=== PATIENT | male | born 1970 | race Caucasian/White ===

== ENCOUNTER 2017-08-03 07:37 | Emergency (ER) | payer BC ==
[2017-08-03 07:54] VITALS: BP 142/97
--- NOTE | 2017-08-03 08:59 | UC ---
Skin Complaint HPI - HPI Summary HPI Summary: ABOUT 2 WEEKS OF VERY ITCHY RASH ON TRUNK AND INNER THIGHS. DENIES ANY NEW LOTIONS, DETERGENTS, SOAPS, BODY SPRAYS OR OTHER NEW EXPOSURES. NO NEW MEDS. DOES A LOT OF SWIMMING IN THE FU. - History of Current Complaint Chief Complaint: [facility] Time Seen by Provider: 08/03/17 08:20 Stated Complaint: RASH Hx Obtained From: Patient Onset/Duration: Gradual Onset, Lasting Weeks, Still Present Timing: Constant Onset Severity: Moderate Current Severity: Moderate Pain Intensity: 0 Pain Scale Used: 0-10 Numeric Character: Pruritus, Redness Aggravating Factor(s): Touch Alleviating Factor(s): Nothing Associated Signs & Symptoms: Positive: Rash. Negative: Nausea, Diaphoresis, Difficulty Breathing, Fever, Chills, Cough, Wheezing, Chest Pain, Throat Tightening, Tenderness, Red Streaks - Allergy/Home Medications Allergies/Adverse Reactions: Allergies Allergy/AdvReac Type Severity Reaction Status Date / Time Kiwi Extract Allergy Severe THROAT Verified 08/03/17 07:50 SWELLING Home Medications: Home Medications Aspirin [Aspirin 81 MG TAB] 1 tab PO DAILY 08/03/17 [History Confirmed 08/03/17] Onrscae-Embffwbud-Fyut [Calcium & Magnesium + Zin 334-134-5 mg] 1 tab PO DAILY 08/03/17 [History Confirmed 08/03/17] Cinnamon 1 tab PO DAILY 08/03/17 [History Confirmed 08/03/17] Review of Systems Constitutional: Negative Skin: Rash Respiratory: Negative Cardiovascular: Negative Gastrointestinal: Negative All Other Systems Reviewed And Are Negative: Yes PMH/Surg Hx/FS Hx/Imm Hx Cardiovascular History: Hypertension - Surgical History Surgical History: Yes Surgery Procedure, Year, and Place: soft palate surgery 1998 for sleep apnea - Family History Known Family History: Negative: Hypertension, Diabetes - Social History Alcohol Use: Occasionally Alcohol Amount: 2/DAY Substance Use Type: None Smoking Status (MU): Never Smoked Tobacco - Immunization History Most Recent Tetanus Shot: UNKNOWN Physical Exam Triage Information Reviewed: Yes Appearance: Well-Appearing, No Pain Distress, Well-Nourished Vital Signs: Initial Vital Signs Temp 97.7 F 08/03/17 07:51 Pulse 83 08/03/17 07:51 Resp 18 08/03/17 07:51 BP 142/97 08/03/17 07:51 Pulse Ox 97 08/03/17 07:51 Vital Signs Reviewed: Yes Eyes: Positive: Conjunctiva Clear ENT: Positive: Hearing grossly normal Neck: Positive: Supple Respiratory: Positive: No respiratory distress, No accessory muscle use Cardiovascular: Positive: Pulses Normal Abdomen Description: Positive: Soft Musculoskeletal: Positive: No Edema Neurological: Positive: Alert Psychological: Positive: Age Appropriate Behavior Skin: Positive: rashes - DIFFUSE ERYTHEMATOUS, RAISED RASH OVER TRUNK AND MINIMALLY ON INNER THIGHS WITH MILD EXCORIATION Course/Dx - Diagnoses Provider Diagnoses: ATOPIC DERMATITIS Discharge - Discharge Plan Condition: Stable Disposition: HOME Prescriptions: Triamcinolone 0.1% CREAM(NF) [Kenalog Cream 0.1%(NF)] 1 applic TOPICAL TID PRN # 1 tube PRN Reason: Itching predniSONE TAB* [Deltasone TAB*] 50 mg PO DAILY #7 tab Patient Education Materials: Contact Dermatitis (ED) Referrals: Candace Steen MD [Medical Doctor] - (KEEP YOUR APPT 08/22/17) Marylou Tejada MD [Primary Care Provider] - If Needed Additional Instructions: UNCLEAR WHAT EXACTLY IS CAUSING YOUR RASH BUT IT APPEARS TO BE AN ALLERGIC DERMATITIS. USE DAILY MOISTURIZING LOTION AVOID HEAT AND HOT WATER TAKE OTC ANTIHISTAMINE DAILY (CLARITIN (LORATADINE), ZYRTEC (CETIRIZINE) OR BIA (FEXOFENADINE) IN THE MORNING, 25-50MG BENADRYL AT NIGHT) DO NOT SCRATCH KEEP COOL, CLEAN AND DRY SEE PCP OR DERMATOLOGY IF NOT IMPROVING IF YOUR SYMPTOMS BECOME RECURRENT CONSIDER EVAL BY AN STICKER HAND. [facility] Address: [address], [place] [address] [facility] [address] [place], [place] [address]sh[address], [address] [place], [place] [address]
== END 2017-08-03 08:56 | disposition home or self-care (01) ==
LOC: UCEAST 07:37
DX: L20.9 Atopic dermatitis, unspecified (principal); Z79.82 Long term (current) use of aspirin; Z91.018 Allergy to other foods
CPT/HCPCS: 99212; G0463

== ENCOUNTER 2018-04-29 14:05 | Emergency (ER) | payer BC ==
[2018-04-29 14:17] VITALS: BP 145/105
[2018-04-29] MEDS ORDERED: predniSONE TAB* 20 MG PO ONE (14:46)
--- NOTE | 2018-04-29 15:03 | UC ---
Cordelia Ng Rebecca, scribed for Aydee Ortiz MD on 04/29/18 at 1430 . Skin Complaint HPI - HPI Summary HPI Summary: Pt is a 47 y/o M who presents to [facility] c/o bilateral UE, bilateral ear and facial rash for about 2 weeks. Rash is characterized as "hot" and pruritic and he suspects it is due to sun exposure or from poison kandis. Rash has been intermittent since onset, improving occasionally, then after he itches it, will return. Reports that the rash seems to return with sun exposure and with certain foods, unchanged by wine or alcohol. Treats with isopropyl alcohol, which slightly improves sx. Has been outside a lot this past week and on (2 days ago) he wore a long sleeve shirt and sx seemed to improve. Notes a pimple on his nose which he has been treating with Neosporin. Denies wheezing, SOB. Prior similar episode last summer for which he saw a logging superintendent, who he last saw in the fall. He has has poison kandis in the past and he thinks this may be similar to those episodes. Has been on all his home medications for "a while" without any changes to detergents or shaving creams. 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 - History of Current Complaint Chief Complaint: [facility] Time Seen by Provider: 04/29/18 14:14 Stated Complaint: RASH Hx Obtained From: Patient Onset/Duration: Lasting Weeks - 2 weeks, Still Present Timing: Intermittent Episodes Lasting: Current Severity: Mild Pain Intensity: 3 Pain Scale Used: 0-10 Numeric Location: Other - Bilateral UE, facial and bialteral ear Character: Pruritus, Pain, Redness Aggravating Factor(s): Other - Sun, itching Alleviating Factor(s): Other - Isopropyl Associated Signs & Symptoms: Positive: Negative. Negative: Wheezing - Allergy/Home Medications Allergies/Adverse Reactions: Allergies Allergy/AdvReac Type Severity Reaction Status Date / Time kiwi Allergy Swelling Verified 04/29/18 14:18 Of Face,Lips,& Throat Review of Systems Constitutional: Negative Skin: Rash - Bilateral UE, bialteral ear and facial pruritic rash, Other - Pimple on nose Eyes: Negative ENT: Negative Respiratory: Negative Cardiovascular: Negative Gastrointestinal: Negative Genitourinary: Negative Motor: Negative Neurovascular: Negative Musculoskeletal: Negative Neurological: Negative Psychological: Negative All Other Systems Reviewed And Are Negative: Yes - Comments Additional Review of Systems Comments: NEGATIVE: Wheezing, SOB PMH/Surg Hx/FS Hx/Imm Hx Endocrine History: Dyslipidemia - HLD Cardiovascular History: Hypertension Respiratory History: Other Other Respiratory History: Sleep apnea - Surgical History Surgical History: Yes Surgery Procedure, Year, and Place: soft palate surgery 1998 for sleep apnea - Family History Known Family History: Negative: Hypertension, Diabetes - Social History Occupation: Employed Full-time - Splicer with [employer] Alcohol Use: Occasionally Alcohol Amount: 2/DAY Substance Use Type: None Smoking Status (MU): Never Smoked Tobacco - Immunization History Most Recent Tetanus Shot: UNKNOWN Physical Exam Triage Information Reviewed: Yes Appearance: Well-Appearing, Obese Vital Signs: Initial Vital Signs Temp 98.0 F 04/29/18 14:13 Pulse 71 04/29/18 14:13 Resp 18 04/29/18 14:13 BP 145/105 04/29/18 14:13 Pulse Ox 98 04/29/18 14:13 Vital Signs Reviewed: Yes ENT Exam: Normal ENT: Positive: Normal ENT inspection Neck exam: Normal Respiratory Exam: Normal Cardiovascular Exam: Normal Cardiovascular: Positive: RRR Skin Exam: Other - superficial ulcer with crusting on bridge of nose Skin: Positive: rashes - Macular papular lesions on the trunk and arms, face and neck, following the track of excoriation ravi and in clusters. Some of the lesions are crusted, and there are papular lesions along the brannon area. Course/Dx - Course Course Of Treatment: Patient to start medication as prescribed, start prednisone tablets in morning along with zantac and clobetasol ointment. F/u with PCP and dermatology in 2 weeks for lesion on bridge of nose. - Diagnoses Provider Diagnoses: poison kandis. HTN Discharge - Sign-Out/Discharge Documenting (check all that apply): Discharge/Admit/Transfer - Discharge - Discharge Plan Condition: Stable Disposition: HOME Prescriptions: Clobetasol 0.05% OINT* 1 applic TOPICAL BID 7 Days #1 tube predniSONE TAB* [Deltasone 20 MG TAB*] 60 mg PO DAILY 5 Days #15 tab Ranitidine TAB (NF) [Zantac TAB (NF)] 300 mg PO BEDTIME 30 Days #30 tab Patient Education Materials: Clobetasol Propionate (On the skin), Ranitidine ( By mouth), Prednisone (By mouth), Poison Kandis (ED) Referrals: Marylou Tejada MD [Primary Care Provider] - Additional Instructions: Use over the counter 1% hydrocortisone cream on your face. Wear long-sleeve shirts and a hat when working outside. Will give the first dose of Prednisone here at Urgent Care. - Billing Disposition and Condition Condition: STABLE Disposition: Home The documentation as recorded by the Cordelia velez Rebecca accurately reflects the service I personally performed and the decisions made by me, Aydee Ortiz MD.
== END 2018-04-29 15:05 | disposition home or self-care (01) ==
LOC: UCEAST 14:05
DX: L23.7 Allergic contact dermatitis due to plants, except food (principal); I10 Essential (primary) hypertension; E78.5 Hyperlipidemia, unspecified; G47.30 Sleep apnea, unspecified; Z91.018 Allergy to other foods
CPT/HCPCS: 99212; G0463; J7512

== ENCOUNTER 2018-07-05 09:19 | Emergency (ER) | payer BC, OTHER ==
[2018-07-05 09:50] VITALS: BP 161/102
--- NOTE | 2018-07-05 10:00 | UC ---
Hand/Wrist HPI - HPI Summary HPI Summary: A 48 y/o M presents to [facility] with pain to L hand ring finger onset approx. 1400 yesterday while at work. The pain radiates from his finger to his elbow. He states his finger got caught in a car door. When it happened he could feel something being pulled out coming from his elbow. Denies pain to other fingers on L hand; pain to L wrist. - History Of Current Complaint Chief Complaint: [facility] Stated Complaint: FINGER INJURY Time Seen by Provider: 07/05/18 09:54 Hx Obtained From: Patient Onset/Duration: Sudden Onset, Lasting Days - yesterday, Still Present Severity Initially: Moderate Severity Currently: Moderate Pain Intensity: 7 Pain Scale Used: 0-10 Numeric Associated Signs And Symptoms: Positive: Other - neg: pain to other fingers on L hand, pain to L wrist Related History: Occupational Injury - Allergies/Home Medications Allergies/Adverse Reactions: Allergies Allergy/AdvReac Type Severity Reaction Status Date / Time kiwi Allergy Swelling Verified 04/29/18 14:18 Of Face,Lips,& Throat PMH/Surg Hx/FS Hx/Imm Hx Previously Healthy: No Other Endocrine History: neg DM Cardiovascular History: Hypertension Other Respiratory History: neg COPD - Surgical History Surgical History: Yes Surgery Procedure, Year, and Place: soft palate surgery 1998 for sleep apnea - Family History Known Family History: Negative: Hypertension, Diabetes - Social History Occupation: Employed Full-time Lives: With Family Alcohol Use: Occasionally Alcohol Amount: 2/DAY Substance Use Type: None Smoking Status (MU): Never Smoked Tobacco - Immunization History Most Recent Tetanus Shot: UNKNOWN Review of Systems Constitutional: Other - neg: fever Musculoskeletal: Other: - pos: pain at L ring finger radiating to elbow. neg: pain to other fingers of L hand, pain to L wrist All Other Systems Reviewed And Are Negative: Yes Physical Exam - Summary Physical Exam Summary: General: well-appearing, no pain distress Skin: warm, color reflects adequate perfusion, dry Head: normal Eyes: EOMI, WICOH ENT: normal Neck: supple, nontender Respiratory: CTA, breath sounds present Cardiovascular: RRR Abdomen: soft, nontender Bowel: present Musculoskeletal: L ring finger is tender to palpation on the Thenar aspect, it shows FROM and nml capillary refill, nml sensation deficit. There is pain with flexion of L ring finger and the pain radiates to L elbow. Neurological: sensory/motor intact, A&O x3 Psychological: affect/mood appropriate Triage Information Reviewed: Yes Vital Signs: Initial Vital Signs Temp 98 F 07/05/18 09:46 Pulse 75 07/05/18 09:46 Resp 15 07/05/18 09:46 BP 161/102 07/05/18 09:46 Pulse Ox 100 07/05/18 09:46 Vital Signs Reviewed: Yes Diagnostics - Laboratory Diagnostic Studies Completed/Ordered: L HAND XR as read by radiologist: IMPRESSION: No evidence for fracture. [facility] physician has reviewed this report. L WRIST XR as read by radiologist: IMPRESSION: No evidence for fracture. [facility] physician has reviewed this report. Re-Evaluation - Re-Evaluation 1 Re-Evaluation Time: 11:10 Change: Unchanged Comment: Discussing XR results with pt and plan to dispo. Pt voiced understanding. Pt has secondary complaint during reeval, and upon limited PE, was found to have vescicles on bilat forearms with underlying erythema. Hand/Wrist Course/Dx - Course Course Of Treatment: BP noted and advised to follow up with PCP. Medications reviewed. Allergies noted. - Differential Dx/Diagnosis Provider Diagnoses: LEFT 4TH FINGER SPRAIN WITH RADIATION OF PAIN TO LEFT ELBOW. POISON LO. HTN Discharge - Sign-Out/Discharge Documenting (check all that apply): Patient Departure - DC All imaging exams completed and their final reports reviewed: Yes - Discharge Plan Condition: Stable Disposition: HOME Prescriptions: Mometasone Furoate [Elocon] 1 applic TOPICAL TID #15 gm predniSONE TAB* [Deltasone 20 MG TAB*] 40 mg PO DAILY #10 tab Patient Education Materials: Poison Lo (ED), Finger Sprain (ED) Referrals: Cruz Le MD [Medical Doctor] - Marylou Tejada MD [Primary Care Provider] - Additional Instructions: FOLLOW UP WITH YOUR DOCTOR IF NOT COMPLETELY IMPROVED. GET RECHECKED FOR ANY WORSENING OF YOUR CONDITION OR QUESTIONS OR CONCERNS. Your blood pressure was elevated during todays visit; please follow up with your primary care provider within a week for further evaluation. - Billing Disposition and Condition Condition: STABLE Disposition: Home - Attestation Statements Document Initiated by Scribe: Yes Documenting Scribe: [facility] Provider For Whom Scribe is Documenting (Include Credential): Moustapha Quiles MD Scribe Attestation: I, Thania Bran, scribed for Moustapha Quiles MD on 07/05/18 at 1200. Scribe Documentation Reviewed: Yes Provider Attestation: The documentation as recorded by the scribe, Thania Bran accurately reflects the service I personally performed and the decisions made by me, Moustapha Quiles MD
--- NOTE | 2018-07-05 10:54 | RAD ---
INDICATION: Left forearm injury. TECHNIQUE: 2 views of the left forearm were obtained. FINDINGS: The bones are in normal alignment. No fracture is seen. IMPRESSION: NO EVIDENCE FOR FRACTURE.
--- NOTE | 2018-07-05 10:56 | RAD ---
INDICATION: Left hand injury. TECHNIQUE: 4 views of the left hand were obtained. FINDINGS: The bones are in normal alignment. No fracture is seen. Joint spaces appear maintained. IMPRESSION: NO EVIDENCE FOR FRACTURE.
== END 2018-07-05 11:28 | disposition home or self-care (01) ==
LOC: UCEAST 09:19
DX: S63.615A Unspecified sprain of left ring finger, initial encounter (principal); I10 Essential (primary) hypertension; M25.522 Pain in left elbow; L23.7 Allergic contact dermatitis due to plants, except food; Z91.018 Allergy to other foods; V48.9XXA Unspecified car occupant injured in noncollision transport accident in traffic accident, initial encounter; Y92.9 Unspecified place or not applicable; Y99.0 Civilian activity done for income or pay
CPT/HCPCS: 99212; G0463

== ENCOUNTER 2019-06-13 07:27 | Emergency (ER) | payer BC ==
[2019-06-13 07:53] VITALS: BP 172/108
--- NOTE | 2019-06-13 08:09 | UC ---
Skin Complaint HPI - HPI Summary HPI Summary: ABOUT 1 WEEK OF VERY ITCHY RASH DIFFUSELY ON TRUNK AND EXTREMITIES. DENIES ANY NEW LOTIONS, DETERGENTS, SOAPS, BODY SPRAYS OR OTHER NEW EXPOSURES. NO NEW MEDS OR TRAVEL. DOES A LOT OF SWIMMING IN THE FU BUT THIS IS NORMAL HE LIVES ON THE FU. HAS HAD SIMILAR EPISODES EVERY SUMMER SINCE 2016. RESPONDS WELL TO PREDNISONE. SEES DERMATOLOGY AND WORLD TRAVEL COUNSELOR. - History of Current Complaint Chief Complaint: [facility]kin Time Seen by Provider: 06/13/19 07:41 Stated Complaint: RASH Hx Obtained From: Patient Onset/Duration: Gradual Onset, Lasting Days, Still Present Timing: Constant Onset Severity: Moderate Current Severity: Moderate Pain Intensity: 2 Pain Scale Used: 0-10 Numeric Location: Diffuse Character: Pruritus, Redness Aggravating Factor(s): Nothing Alleviating Factor(s): Nothing Associated Signs & Symptoms: Positive: Rash - Allergy/Home Medications Allergies/Adverse Reactions: Allergies Allergy/AdvReac Type Severity Reaction Status Date / Time kiwi Allergy Swelling Verified 06/13/19 07:40 Of Face,Lips,& Throat PMH/Surg Hx/FS Hx/Imm Hx Cardiovascular History: Hypertension - Surgical History Surgical History: Yes Surgery Procedure, Year, and Place: soft palate surgery 1998 for sleep apnea - Family History Known Family History: Negative: Hypertension, Diabetes - Social History Alcohol Use: Occasionally Alcohol Amount: 2/DAY Substance Use Type: None Smoking Status (MU): Never Smoked Tobacco - Immunization History Most Recent Tetanus Shot: UNKNOWN Review of Systems All Other Systems Reviewed And Are Negative: Yes Constitutional: Positive: Negative Skin: Positive: Rash Respiratory: Positive: Negative Cardiovascular: Positive: Negative Gastrointestinal: Positive: Negative Physical Exam Triage Information Reviewed: Yes Appearance: Well-Appearing, No Pain Distress, Well-Nourished Vital Signs: Initial Vital Signs Temp 96.5 F 06/13/19 07:35 Pulse 76 06/13/19 07:35 Resp 18 06/13/19 07:35 BP 172/108 06/13/19 07:35 Pulse Ox 95 06/13/19 07:35 Vital Signs Reviewed: Yes Eyes: Positive: Conjunctiva Clear ENT: Positive: Hearing grossly normal Neck: Positive: Supple Respiratory: Positive: No respiratory distress, No accessory muscle use Cardiovascular: Positive: Pulses Normal Abdomen Description: Positive: Soft Musculoskeletal: Positive: No Edema Neurological: Positive: Alert Psychological: Positive: Age Appropriate Behavior Skin: Positive: Rashes - DIFFUSE PINPOINT PAPULAR RASH OVER TRUNK, ARMS AND LEGS. MILDLY EXCORIATED IN PLACES. Course/Dx - Course Course Of Treatment: PATIENT HAS HAD SIMILAR RASHES EVERY SUMMER SINCE 2016. HE RESPONDS WELL TO PREDNISONE SO WILL GIVE HIM THIS AGAIN TODAY. HAVE ENCOURAGED HIM TO FOLLOW UP WITH BOTH HIS BARGE PILOT AND HIS WORLD TRAVEL COUNSELOR IN AN ATTEMPT TO DISCOVER THE TRIGGER. ADVISED HE TAKE DAILY ANTIHISTAMINES WELL. STAY COOL, CLEAN AND DRY. - Diagnoses Provider Diagnosis: Allergic dermatitis Discharge - Sign-Out/Discharge Documenting (check all that apply): Patient Departure All imaging exams completed and their final reports reviewed: No Studies - Discharge Plan Condition: Stable Disposition: HOME Prescriptions: predniSONE TAB* [Deltasone TAB*] 50 mg PO DAILY #7 tab Patient Education Materials: Dermatitis (ED) Referrals: Marylou Tejada MD [Primary Care Provider] - 1 Week Additional Instructions: UNCLEAR WHAT EXACTLY IS CAUSING YOUR RASH BUT IT APPEARS TO BE AN ALLERGIC DERMATITIS. USE DAILY MOISTURIZING LOTION AVOID HEAT AND HOT WATER TAKE OTC ANTIHISTAMINE DAILY (CLARITIN (LORATADINE), ZYRTEC (CETIRIZINE) OR BIA (FEXOFENADINE) IN THE MORNING, 25-50MG BENADRYL AT NIGHT) DO NOT SCRATCH KEEP COOL, CLEAN AND DRY SEE YOUR BARGE PILOT IF NOT IMPROVING. CONSIDER RETURNING TO YOUR WORLD TRAVEL COUNSELOR TO FURTHER DISCUSS POSSIBLE TRIGGERS THIS SEEMS TO BE A RECURRENT ISSUE FOR YOU. YOUR BP IS MUCH TOO HIGH. CALL YOUR PCP FOR A FOLLOW-UP WITHIN A WEEK. CHECK YOUR BP READINGS AT HOME AND BRING A LOG WITH YOU TO THE APPT. - Billing Disposition and Condition Condition: STABLE Disposition: Home
== END 2019-06-13 08:04 | disposition home or self-care (01) ==
LOC: UCEAST 07:27
DX: L23.9 Allergic contact dermatitis, unspecified cause (principal); I10 Essential (primary) hypertension
CPT/HCPCS: 99212; G0463

== ENCOUNTER 2019-09-04 11:32 | Emergency (ER) | payer BC ==
--- OUTSIDE RECORDS SUMMARY | 2019-09-04 11:39 | XMS REPORT | Continuity of Care Document ---
:1970 External Reference #:[id number] Author Name Balbina Downs MD (transmitted by agent of provider Melissa Vivar) Address [address] [place] [address] Care Team Providers Name Role Phone Marylou Tejada MD - Internal Care Team Information Pad Cutter [phone] Medicine Problems Active Problems Provider Date Chronic ischemic heart disease Gavin Vega M.D. Onset: 02/26/2014 Essential hypertension Gavin Vega M.D. Onset: 02/26/2014 Eruption Gavin Vega M.D. Onset: 02/26/2014 Hyperlipidemia Victor Manuel Cutler M.D., [facility] Onset: 08/12/2014 Atherosclerotic heart disease of Victor Manuel Cutler M.D., [facility] Onset: 2015 [place] coronary artery without angina pectoris Social History Type Date Description Comments Sex Unknown ETOH Use Occasionally consumes beer Tobacco Use Start: Unknown Patient has never smoked Recreational Drug Use Denies Drug Use Smoking Status Reviewed: 07/26/19 Patient has never smoked Exercise Type/Frequency Exercises sporadically walking Allergies, Adverse Reactions, Alerts Description No Known Drug Allergies Medications Active Medications SIG Qnty Indications Ordering Date Provider Amlodipine Besylate 1 by mouth every 90tabs Victor Manuel Cutler, 05/11/2017 day M.D., FACMauricio, 10mg Tablets [facility] Nitrostat 1 tab sublingual 25tabs I25.10 Victor Manuel Cutler, 02/23/2017 0.4mg Tablets as needed every 5 M.D., FACC, Sub mins x 3 [facility] Metoprolol Succinate 1 tab by mouth 90tabs Angela Tristan, 04/24/2013 ER every day M.D. 50mg Tablets ER 24HR Atorvastatin Calcium 1 tab by mouth 90tabs Victor Manuel Cutler, 04/24/2013 every day ARIADNA Wood, 20mg Tablets [facility] Aspirin 1 by mouth every Unknown 81mg Tablets day Immunizations Description No Information Available Vital Signs Date Vital Result Comment 07/26/2019 3:01pm Height 69.75 inches 5'9.75" Weight 280.00 lb BP Systolic Sitting 139 mmHg L arm BP Diastolic Sitting 95 mmHg L arm O2 % BldC Oximetry 96 % BMI (Body Mass Index) 40.5 kg/m2 04/11/2019 1:13pm Height 69.75 inches 5'9.75" Weight 278.00 lb with shoes Heart Rate 72 /min BP Systolic Sitting 154 mmHg lue reg cuff BP Diastolic Sitting 98 mmHg lue reg cuff BP Systolic Standing 160 mmHg lue reg cuff BP Diastolic Standing 100 mmHg lue reg cuff Respiratory Rate 18 /min BMI (Body Mass Index) 40.2 kg/m2 Ejection Fraction none noted Results Test Date Facility Test Result H/L Range Note Laboratory test 01/31/2019 [facility] Surgical SEE RESULT 1 , [address] Pathology BELOW [place], [place] [id number] [phone] [id number] 2 SEE RESULT BELOW Name: VICTOR MANUEL LEÓN : [address]: Wade Peng MD Acct: [id number] Unit: [id number] AGE: 48 Location: [facility] Re01/31/19 SEX: M Status: DEP REF SPEC: [id number] MENDY: 01/31/19-[address] [facility] [address]: Wade Peng MD REQ: [id number] RECD: 01/31/19 STATUS: NIR SAXENA DR: Marylou Tejada MD PC _ ORDERED: LEVEL 4/3 COMMENTS: [id number] FINAL DIAGNOSIS 1. Colon, hepatic flexure, biopsy: -- Tubular adenoma. -- No high grade dysplasia or malignancy. 2. Colon, splenic flexure, biopsy: -- Sessile serrated adenoma. -- No high grade dysplasia or malignancy. 3. Colon, rectum at 2 cm, biopsy: -- Hyperplastic polyp. CLINICAL HISTORY Screening/Surveillance for malignancy in asymptomatic patient; usual bowel habit POST-OPERATIVE DIAGNOSIS Colonoscopy: to cecum with ease; conclusions: diverticulosis - haynes; polyps GROSS DESCRIPTION 1. The specimen is received in formalin labeled, Hepatic Flexure Polyp Biopsy, and consists of a 0.5 x 0.3 by up to 0.2 cm hoang polypoid soft tissue fragment which is submitted entirely in one cassette. 2. The specimen is received in formalin labeled, Splenic Flexure Polyp, and consists of a CONTINUED ON NEXT PAGE DEPARTMENT OF PATHOLOGY, [address] [place] [address] Hansel Gandara M.D. Director [facility]ON[facility]IE # [id number] RUN DATE: 02/01/19 [facility] LAB LIVE PAGE 2 Patient: VICTOR MANUEL LEÓN [id number] (Continued) GROSS DESCRIPTION (Continued) 0.8 by up to 0.3 x 0.1 cm hoang-pink irregular soft tissue fragment which is submitted entirely in one cassette. 3. The specimen is received in formalin labeled, Rectal Polyp at 2 cm, and consists of a 0.3 x 0.3 x 0.2 cm hoang-pink polypoid soft tissue fragment which is submitted entirely in one cassette. Signed by and Reported on: Radha Blackburn MD 02/01/19 1223 END OF REPORT DEPARTMENT OF PATHOLOGY, [address] [place] [address] Hansel Gandara M.D. Director [facility] # [id number] Procedures Date Code Description Status 04/11/2019 05816 EKG Tracing & Interpretation Completed 01/31/2019 54385 Colonoscopy Flexible Remove Tumor/Polyp/Lesion Snare Completed Technique 01/31/2019 [id number] Colonoscopy Completed Medical Devices Description No Information Available Encounters Type Date Location Provider Dx Diagnosis Office Visit 04/11/2019 [facility] Samson Forbes I25.10 Athscl heart 1:30p Of Marisol Vaughan M.D., disease of [place] FACC, FASNC coronary artery w/o ang pctrs I10 Essential (primary) hypertension Assessments Date Code Description Provider 07/26/2019 I10 Essential (primary) hypertension Balbina Downs MD 07/26/2019 N18.1 Chronic kidney disease, stage 1 Balbina Downs MD 07/26/2019 E78.5 Hyperlipidemia, unspecified Balbina Downs MD 04/11/2019 I25.10 Atherosclerotic heart disease of Samson Vaughan M.D., [facility], [place] coronary artery with [facility] 04/11/2019 I10 Essential (primary) hypertension Samson Vaughan M.D., [facility] , [facility] 01/31/2019 Z12.11 Encounter for screening for malignant Wade Peng MD neoplasm of colon 01/31/2019 D12.3 Benign neoplasm of transverse colon Wade Peng MD 01/31/2019 K63.89 Other specified diseases of intestine Wade Peng MD 01/31/2019 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
[2019-09-04 12:20] VITALS: BP 140/101
--- NOTE | 2019-09-04 12:41 | UC ---
UC General HPI - HPI Summary HPI Summary: personnel scheduler reviewed: Pt c/o L eye itchyness, redness, not blinking often, L ear teary, and some numbness on L side of face that started yesterday morning. 49 yo gentleman c/o feeling "not right" since yesterday morning. Got through the day ok, but still not right. This am noticed funny feeling on L face and L neck. + Lear ear pain, not tinnitus perse. Unsure if visual changes b/c both eyes have been watery. R face feels better today than yesterday but is very concerned that he now has had problems both sides, and has plans to fly out of town in a few days. No recent fever / chills. No new rash, does have chronic irritation ant chest wall, uses topical cream as needed per marketing and outreach coordinator. No c /o chest pain / pressure / palpitations. Has been taking bp medications as prescribed. Followed by Dr. Tobias. Does not recall getting bitten by tick lately, but spends time outdoors. No GI issues reported. Hx DM borderline. - History of Current Complaint Chief Complaint: UCGeneralIllness Stated Complaint: SIDE OF FACE NUMB Time Seen by Provider: 09/04/19 12:39 Hx Obtained From: Patient Pain Intensity: 0 - Allergy/Home Medications Allergies/Adverse Reactions: Allergies Allergy/AdvReac Type Severity Reaction Status Date / Time kiwi Allergy Swelling Verified 09/04/19 12:12 Of Face,Lips,& Throat Home Medications: Home Medications Cetirizine* [ZyrTEC 10 MG TAB*] 5 mg PO ONCE 09/04/19 [History Confirmed ] amLODIPine TAB* [Norvasc 5 mg TAB*] 5 mg PO DAILY 09/04/19 [History Confirmed ] PMH/Surg Hx/FS Hx/Imm Hx Previously Healthy: Yes - Surgical History Surgical History: Yes Surgery Procedure, Year, and Place: soft palate surgery 1998 for sleep apnea - Family History Known Family History: Negative: Hypertension, Diabetes - Social History Alcohol Use: Daily Alcohol Amount: 1 beer a day Substance Use Type: None Smoking Status (MU): Never Smoked Tobacco - Immunization History Most Recent Tetanus Shot: UNKNOWN Review of Systems All Other Systems Reviewed And Are Negative: Yes Constitutional: Positive: Negative Skin: Positive: Other - see hpi Eyes: Positive: Other - see hpi ENT: Positive: Other - see hpi Respiratory: Positive: Negative Cardiovascular: Positive: Negative Gastrointestinal: Positive: Negative Genitourinary: Positive: Negative Motor: Positive: Other - see hpi Neurovascular: Positive: Other - see hpi Musculoskeletal: Positive: Negative Neurological: Positive: Other - see hpi Psychological: Positive: Negative Is Patient Immunocompromised?: No Physical Exam Triage Information Reviewed: Yes Appearance: Well-Appearing, Well-Nourished Vital Signs: Initial Vital Signs Temp 98.1 F 09/04/19 12:14 Pulse 71 09/04/19 12:14 Resp 16 09/04/19 12:14 BP 140/101 09/04/19 12:14 Pulse Ox 97 09/04/19 12:14 Vital Signs Reviewed: Yes Eye Exam: Other Neck exam: Normal - no carotid bruits noted Neck: Positive: Supple, Nontender, No Lymphadenopathy Respiratory Exam: Normal Respiratory: Positive: Chest non-tender, Lungs clear, Normal breath sounds, No respiratory distress, No accessory muscle use Cardiovascular Exam: Normal Cardiovascular: Positive: RRR, No Murmur, Pulses Normal, Brisk Capillary Refill Abdominal Exam: Normal Abdomen Description: Positive: Nontender Musculoskeletal Exam: Other - gait steady, moves x 4 ext's. Strength good. Neurological Exam: Other - CN: L facial droop, L forehead muscle a little weaker than R. PERRLA EOMI. Vis field as tested ok. Fundi (nondilated) grossly benign. Oroph - subjectively has sens LT to inner cheek. Tongue protrudes midline ok. Both eyes are watery, a little red (L>R). L TM dark pizano, dull, rtx'd. Not red. R TM pizano, ok. CN 1-12 minus -(CN 7) intact. Psychological Exam: Normal Skin Exam: Other - rash ant chest wall, raised plaque, excoriated with hair loss. Course/Dx - Course Course Of Treatment: 140/101 BP FS glucose 137mg / dl. EKG sr at 67 bpm. C/w 2012, similar. Sx are bilateral intermittent. S/sx c/w [place] Palsy varient however, inconsistant with single periph neuropathy. + BL DMell. Consider Lyme (?) As such, will benefit from ED evaluation / tx. D/w pt, he has many questions and concerns, and would like further eval, marlene prior to flying on airplane. Offered ems, declines. Wishes to drive, drove here. - Diagnoses Provider Diagnosis: Facial asymmetry Discharge ED - Sign-Out/Discharge Documenting (check all that apply): Patient Departure All imaging exams completed and their final reports reviewed: No Studies - Discharge Plan Condition: Guarded Disposition: HOME-RECOMMEND TO ED Patient Education Materials: Mccall Palsy (ED), Weakness (ED) Referrals: Marylou Tejada MD [Primary Care Provider] - Additional Instructions: Please go to the Emergency Department. Stop and call 911 for any problems en route. Possibly Mccall's palsy however, can not exclude other (emergent/urgent) condition. - Billing Disposition and Condition Condition: GUARDED Disposition: Home-Recommend to ED
== END 2019-09-04 13:44 | disposition home health service (06) ==
LOC: UCEAST 11:32
DX: M95.2 Other acquired deformity of head (principal); H92.02 Otalgia, left ear; Z91.018 Allergy to other foods
CPT/HCPCS: 93005; 99201; G0463

== ENCOUNTER 2019-09-04 14:35 | Emergency (ER) | payer BC ==
[2019-09-04] MEDS ORDERED: predniSONE TAB* 50 MG PO ONE (14:57)
--- NOTE | 2019-09-04 15:00 | ED ---
Neurological HPI - HPI Summary HPI Summary: Pt is a 49 y/o M presenting to the ED with a chief complaint of facial droop. He states yesterday he woke up with some L ear pain and feeling out of it. He went to help his friend, and his R eye began watering. He put in some eye drops and went to sleep. This morning, he woke up with L-sided facial droop and L eye watering, and wanted to get checked out. Denies additional numbness or weakness. No tinnitus. No fevers. No known tick bites. Patient went to [facility] and was transferred to ED for further evaluation - History of Current Complaint Chief Complaint: EDNeurologicalDeficit Stated Complaint: LT SIDE FACE ISSUE PER PT Time Seen by Provider: 09/04/19 14:47 Hx Obtained From: Patient Onset/Duration: Gradual Onset, Started hours ago, Still Present Timing: Constant Onset Severity: Mild Current Severity: Mild Neurological Deficit Location: Facial Pain Intensity: 2 Pain Scale Used: 0-10 Numeric Character: Other: - facial droop, L ear pain Aggravating: Unknown Alleviating: Nothing Associated Signs and Symptoms: Positive: Negative - Allergy/Home Medications Allergies/Adverse Reactions: Allergies Allergy/AdvReac Type Severity Reaction Status Date / Time kiwi Allergy Swelling Verified 09/04/19 12:12 Of Face,Lips,& Throat Home Medications: Home Medications Clobetasol 0.05% OINT* 1 applic TOPICAL BID 09/04/19 [History Confirmed 09/04/19 ] Lisinopril TAB* [Prinivil TAB*] 10 mg PO DAILY 09/04/19 [History Confirmed 09/04] metFORMIN* [Glucophage 500 MG TAB *] 500 mg PO DAILY 09/04/19 [History Confirmed 09/04/19] metroNIDAZOLE [Metronidazole 0.75 % gel] 1 applic TOPICAL BID 09/04/19 [History Confirmed 09/04/19] PMH/Surg Hx/FS Hx/Imm Hx Previously Healthy: Yes Endocrine/Hematology History: Denies: Hx Diabetes - borderline diabetic, Hx Thyroid Disease Cardiovascular History: Reports: Hx Hypertension Respiratory History: Denies: Hx Asthma, Hx Chronic Obstructive Pulmonary Disease (COPD) GI History: Denies: Hx Ulcer - Surgical History Surgery Procedure, Year, and Place: soft palate surgery 1998 for sleep apnea Infectious Disease History: No Infectious Disease History: Denies: Hx Hepatitis, Hx Human Immunodeficiency Virus (HIV), History Other Infectious Disease, Traveled Outside the [place] in Last 30 Days - Family History Known Family History: Negative: Hypertension, Diabetes - Social History Alcohol Use: Daily Alcohol Amount: 1 beer a day Hx Substance Use: No Substance Use Type: Reports: None Hx Tobacco Use: No Smoking Status (MU): Never Smoked Tobacco Review of Systems Positive: Other - facial droop Positive: Ear Ache - left All Other Systems Reviewed And Are Negative: Yes Physical Exam - Summary Physical Exam Summary: Constitutional: Well-developed, Well-nourished, Alert. (-) Distressed Skin: Warm, Dry HENT: Normocephalic; Atraumatic. Left TM clear. Eyes: Conjunctiva normal Neck: Musculoskeletal ROM normal neck. (-) JVD, (-) Stridor, (-) Nuchal rigidity Cardio: Rhythm regular, rate normal, Heart sounds normal; Intact distal pulses; Radial pulses are 2+ and symmetric. (-) Murmur Pulmonary/Chest wall: Effort normal. (-) Respiratory distress, (-) Wheezes, (-) Rales Abd: Soft, (-) tenderness, (-) Distension, (-) Guarding, (-) Rebound Musculoskeletal: (-) Edema Lymph: (-) Cervical adenopathy Neuro: Alert, Oriented x3. CN-VII palsy. Tearing of L eye. Otherwise CN 2-12 intact. SILT. Strength 5/5 BU/LE. Stable gait. Psych: Mood and affect Normal Triage Information Reviewed: Yes Vital Signs On Initial Exam: Initial Vitals Temp Pulse Resp BP Pulse Ox 97.8 F 73 18 161/109 98 09/04/19 14:36 09/04/19 14:36 09/04/19 14:36 09/04/19 14:36 09/04/19 14:36 Vital Signs Reviewed: Yes Procedures - Sedation Patient Received Moderate/Deep Sedation with Procedure: No Diagnostics - Vital Signs Vital Signs Temp Pulse Resp BP Pulse Ox 09/04/19 14:36 97.8 F 73 18 161/109 98 - Laboratory Lab Statement: Any lab studies that have been ordered have been reviewed, and results considered in the medical decision making process. Re-Evaluation - Re-Evaluation First Eval Re-Evaluation Time: 16:30 Change: Improved - neurology (Dr. Atkins) at bedside. Course/Dx - Course Course Of Treatment: [id number] male presents with left facial weakness and your pain. Physical exam consistent with Mccall's palsy. Will give prednisone 50 and valacyclovir for 1 week. Patient educated to return for worsening symptoms, other numbness weakness, confusion, severe headaches or if he is concerned. Lyme titer sent. - Diagnoses Provider Diagnoses: Mccall's palsy Discharge ED - Sign-Out/Discharge Documenting (check all that apply): Patient Departure - Discharge Plan Condition: Stable Disposition: HOME Prescriptions: predniSONE TAB* [Deltasone TAB*] 50 mg PO DAILY 7 Days #7 tab ValACYclovir (*) [Valtrex 1 GM(*)] 1 gm PO TID 7 Days #21 tab Patient Education Materials: Mccall Palsy (ED) Referrals: Marylou Tejada MD [Primary Care Provider] - Additional Instructions: You were seen in the emergency department for weakness and tingling of your face. Your exam is consistent with Mccall's palsy. This is usually a temporary condition that causes weakness and paralysis of the muscle of your face. It is unknown the exact cause but it is thought to be due to some viral infections such as the herpes virus or Lyme. Please take prednisone 50 mg daily for a total of 7 days (you got your first dose today). Please take valacyclovir 1000 mg 3 times a day for one week. You should also use an eye patch at night and artificial tears as sometimes you eyelid will remain open and you can get dry eyes. Please return for severe headaches, confusion, fevers or if you are concerned. - Billing Disposition and Condition Condition: STABLE Disposition: Home - Attestation Statements Document Initiated by Fadumoibe: Yes Documenting Scribe: [place] Provider For Whom Jorge Luis is Documenting (Include Credential): Anthony Arango MD. Scribe Attestation: Jo Ng, scribed for Anthony Arango MD. on 09/04/19 at 2040. Scribe Documentation Reviewed: Yes Provider Attestation: The documentation as recorded by the Jo velez accurately reflects the service I personally performed and the decisions made by , Anthony Arango MD. Status of Scribe Document: Viewed Consult Consult: [id number] - Q spoke with Dr. Atkins who will be coming to see the pt in the ED. at 1645, Dr. Atkins agrees with plan for outpatient treatment.
[2019-09-04 17:00] VITALS: BP 155/97
--- NOTE | 2019-09-04 22:19 | CONS ---
NEUROLOGY CONSULTATION NOTE: DATE OF CONSULT: 09/04/19 - EMERGENCY DEPT CONSULTING PROVIDER: Dr. Anthony Arango. REASON FOR CONSULT: Mccall's palsy. CHIEF COMPLAINT: Facial weakness on the left. HISTORY OF PRESENT ILLNESS: Mr. Victor Manuel Escobar is a 49-year-old man who has controlled prediabetes, dyslipidemia, and hypertension, who presented with transient symptoms of left facial weakness, change in taste, lacrimation, and left ear pain. This started yesterday and progressed throughout the day today. He had co-workers telling him that he may have Mccall's palsy. He denied any weakness in the extremities. He denied any numbness. He denied any swallowing difficulty. He denied any double vision, nausea, or vomiting. He did not feel well. Over the last few days, he has had stuffiness in his sinuses as well as congestion in the left ear. The patient stated that he was not exposed to any ticks. He does have a cat who goes outdoor who has had multiple ticks removed in the past. PAST MEDICAL HISTORY: 1. Hypertension. 2. Dyslipidemia. 3. Prediabetic. MEDICATIONS: 1. Aspirin 81 mg daily. 2. Atorvastatin 10 mg daily. 3. Metoprolol 50 mg p.o. daily. 4. Amlodipine 10 mg p.o. daily. 5. Metformin 500 mg p.o. daily. 6. Lisinopril 10 mg p.o. daily. ALLERGIES: To KIWI. FAMILY HISTORY: No family history of stroke or seizures. SOCIAL HISTORY: He denied any recent alcohol or tobacco use. He is . REVIEW OF SYSTEMS: A 14-point review of systems was obtained and otherwise negative except for what was mentioned in the HPI. PHYSICAL EXAM: Vitals: Temperature 98.2, pulse 69, respiratory rate 16, oxygen saturation 94, blood pressure 155/97. General: Well-nourished, well- developed man, in no acute distress. HEENT: Atraumatic/normocephalic without any obvious abnormalities. He does have acne on the face but no apparent vesicles. There are no vesicles in the external auditory meatus. The tympanic membrane is intact bilaterally. Cardiovascular: Regular rate and rhythm with normal S1, S2. Pulmonary: Clear to auscultation bilaterally with no wheezing or rhonchi. Extremities: Normal range of motion with no cyanosis. Abdomen: No abdominal tenderness. No nausea or vomiting. Skin: He does have some erythematous changes in the anterior chest wall but does not appear vesicular. The patient does have a history of poison kaz. Psych: Flat affect, slightly anxious mood, in no acute distress. House-Brackmann score 4. Neurological Examination: Mental status: Awake and alert, oriented to person, place, time, and general circumstance. Language including expression, repetition, and speech were assessed and found to be normal. Cranial Nerves: Pupils equal, round, and reactive to light. Extraocular muscles are intact. There is mild facial droop on the left with Mccall's phenomenon when blinking on the left eye. He has no sensory abnormality on the left side of the face. No tongue deviation. The patient does complain of some hyperacusis on the left ear. He does have weakness to the platysmal muscle on the left side. Motor Examination: 5/5 strength in the upper and lower extremities bilaterally. Sensation is intact throughout. Reflexes 2+ throughout except for 1+ at the ankles bilaterally. Downgoing plantar responses. Coordination normal. Zlwrrh-ld-kccl and heel-to- saavedra testing bilaterally. Gait, normal stance, no ataxia. IMPRESSION AND RECOMMENDATIONS: Mr. 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 The etiology is likely an underlying viral illness given his upper respiratory tract congestion and infection. The patient has no history of tick bites. He has no history of possible HIV. He has never had this before. He has no other neurological deficits other than the findings confined to the left peripheral facial nerve. I reiterate the importance in eye care. The patient is aware that he needs to put Lacri-Lube ointment in his left eye at least every time he goes to sleep and then cover the left eye. Eye care is crucial in this diagnosis. His symptoms would likely resolve within 6 to 12 weeks. Please prescribe prednisone 60 mg daily for a total of 7 days, valacyclovir 1000 mg every 8 hours for a total of 7 days. The side effects of steroids and valacyclovir were discussed with the patient. He may be little irritable and agitated. I encouraged him to drink plenty of fluids while being on valacyclovir. If his symptoms do not improve or he develops any other neurological deficits, I encouraged him to come back to the ER immediately. No need for further intracranial testing. [id number]/[facility] #: [id number] [facility]
== END 2019-09-04 17:00 | disposition home or self-care (01) ==
LOC: ED 14:35
DX: G51.0 Bell's palsy (principal); I10 Essential (primary) hypertension; Z79.84 Long term (current) use of oral hypoglycemic drugs; Z79.899 Other long term (current) drug therapy
CPT/HCPCS: 36415; 86618; 99283; J7512